=== PATIENT | female | born 1980 | race African-American/Black ===

== ENCOUNTER → 2021-06-28 16:15 | Outpatient (CLI) | payer OTHER, SELFPAY ==
[2021-06-28 17:35] LABS: Add Manual Diff / Slide Review NO; Basophils Absolute Auto 0 /uL (0-100); Basophils Percent Auto 0.3 % (0-2); Eosinophils Absolute Auto 0 /uL (0-450); Eosinophils Percent Auto 0.9 % (2-4); Hematocrit 37.2 % (36-46); Hemoglobin 12.1 g/dL (12.0-16.0); Lymphocytes Absolute Auto 1500 /uL (1100-4500); Lymphocytes Percent Auto 38.7 % (25-40); Mean Corpuscular HGB Conc 32.6 % (30-36); Mean Corpuscular Hemoglobin 26.9 PG (26-34); Mean Corpuscular Volume 82.6 fL (80-100); Monocytes Absolute Auto 400 /uL (0-900); Monocytes Percent Auto 10.6 % (3-14); Neutrophils Absolute Auto 2000 /uL (1500-7000); Neutrophils Percent Auto 49.5 % (50-75); Platelet Count 257 X10^3/uL (150-400); Red Cell Distribution Width 20.5 % (11.6-14.8)
[2021-06-28 18:05] LABS: Anisocytosis 1+; RBC Morphology Normal Morphology
[2021-06-28 18:21] LABS: Free T4, Direct Thyroxine 0.94 ng/dL (0.78-2.19)
[2021-06-28 18:36] LABS: Thyroid Stimulating Hormone 0.727 uIU/mL (0.47-4.68)
== END ==
PROVIDERS: PCP Student in an Organized Health Care Education/Training Program; Referring Provider Obstetrics & Gynecology; Visit Provider Obstetrics & Gynecology
DX: D64.9 Anemia, unspecified (principal)
CPT/HCPCS: 36415; 83021; 84439; 84443; 85025

== ENCOUNTER → 2023-10-15 08:52 | Outpatient (CLI) | payer OTHER, SELFPAY ==
--- NOTE | 2023-10-15 08:53 | DI.US.S_ITS ---
PROCEDURE: US PELVIC COMPLETE INDICATIONS: anemia r/t menorrahagia TECHNIQUE: Real-time scanning was performed of the pelvic organs, with image documentation. Additional endovaginal scanning was necessary due to incomplete visualization of the adnexal and endometrial structures by transabdominal scanning. COMPARISON: None. FINDINGS: Uterus: Uterus is anteverted and normal in size at 9.4 by 6.7 by 8.7 cm. The myometrium is heterogeneous. The endometrium measures approximately 4 mm in diameter. There is a midline posterior subserosal fibroid which measures 2.5 x 2.0 x 2.7 cm, a left posterior subserosal fibroid which measures 3.3 x 2.8 x 3.4 cm and a right subserosal fibroid which measures 3.1 x 2.8 x 3.7 cm. Ovaries: The right ovary measures 3.0 x 1.8 x 2.7 cm, with a calculated ovarian volume of 7.6 cc. The left ovary measures 3.7 x 1.2 x 2.3 cm, with a calculated ovarian volume of 6.5 cc. The ovaries have a normal sonographic appearance. Less than 12 follicles can be seen in each ovary. No adnexal masses are seen. Other: No pathologic free abdominal or pelvic fluid. IMPRESSION: Fibroid uterus. e strive to produce accurate, complete, and clear reports of imaging services. To assist us in improving patient care, this report was composed using standard report templates and voice recognition software. Therefore, it may contain abnormal punctuation, insertions and/or omissions. Occasional wrong-word or sound-alike substitutions may occur. Though we review the report and make efforts to correct it, we do recommend that the report be read carefully in proper context to recognize any text inaccuracies. Dictated by: Gris Camp M.D. on 10/15/2023 at 10:33 Approved by: Gris Camp M.D. on 10/15/2023 at 10:36
== END ==
LOC: US 08:53
PROVIDERS: PCP Student in an Organized Health Care Education/Training Program; Referring Provider Specialist; Visit Provider Specialist
DX: N92.6 Irregular menstruation, unspecified (principal); D25.2 Subserosal leiomyoma of uterus; D64.9 Anemia, unspecified
CPT/HCPCS: 76856